=== PATIENT | male | born 1960 | race Caucasian/White ===

== ENCOUNTER 2023-09-17 08:32 | Day surgery (SDC) | payer BC ==
[~2023-09-17] VITALS: Ht 165.1 cm; Wt 76.2 kg
[~2023-09-17 08:32] MED LIST: AMLO1TAB25; EZET10TA21; LISI30TA4; NS 1,000 ML IV ONE; PARO20TA3; POTA10CA60; ROSU40TA4
[2023-09-17] MEDS ORDERED: propofoL 200 MG/20 ML VIAL As Ordered ONE (10:29)
[2023-09-17] MEDS ORDERED: LIDOCAINE 2% INJ 100 MG/5 ML SYRINGE As Ordered ONE (10:29)
[2023-09-17 10:51] VITALS: TEMP 96.8
[2023-09-17 11:22] VITALS: BP 94/52; O2SAT 99
== END 2023-09-17 11:24 | disposition home or self-care (01) ==
LOC: M OPP 08:32
PROVIDERS: ATTEND Internal Medicine Gastroenterology
DX: Z12.11 Encounter for screening for malignant neoplasm of colon (principal); K64.0 First degree hemorrhoids; G47.33 Obstructive sleep apnea (adult) (pediatric); Z79.02 Long term (current) use of antithrombotics/antiplatelets; Z79.899 Other long term (current) drug therapy

== ENCOUNTER → 2025-09-27 | Outpatient (CLI) | payer MEDICARE ==
[~2025-09-27] MED LIST changes: -EZET10TA21; +EZET10TA57; -NS 1,000 ML IV ONE; -POTA10CA60; +POTA10CA70; -ROSU40TA4; +ROSU40TA81
== END ==
LOC: M SOG 07:43
PROVIDERS: ATTEND Orthopaedic Surgery
DX: M79.644 Pain in right finger(s) (principal)